=== PATIENT | female | born 1935 | race Caucasian/White ===

== ENCOUNTER 2018-02-13 11:30 | Emergency (ER) | payer OTHER ==
[~2018-02-13] VITALS: Ht 157.5 cm; Wt 49.9 kg
[2018-02-13 11:36] VITALS: Ht 157.5 cm; Wt 49.9 kg
[2018-02-13 12:50] LABS: BASOPHIL % 0.2 % (0-2); PLATELET COUNT 253 x10^3mcL (130-400)
[2018-02-13 12:56] LABS: RED CELL DISTRIBUTION WIDTH 14.8 % (11.5-14.5)
[2018-02-13 12:57] LABS: CALCIUM 9.3 mg/dL (8.5-10.1); CARBON DIOXIDE 29.6 mmol/L (21-32); CHLORIDE SERUM 110 mmol/L (98-107); GLUCOSE SERUM 311 mg/dL (74-106); POTASSIUM SERUM 3.7 mmol/L (3.5-5.1); SODIUM SERUM 148 mmol/L (136-145)
[2018-02-13 13:01] LABS: ALBUMIN 4.2 g/dL (3.4-5.0); ALKALINE PHOSPHATASE 78 U/L (46-116); ALT/SGPT 25 U/L (14-59); AST/SGOT 15 U/L (15-37); BILIRUBIN TOTAL 0.38 mg/dL (0.20-1.00); CHOLESTEROL 203 mg/dL (<200); HDL CHOLESTEROL 112 mg/dL (40-60); MAGNESIUM 2.3 mg/dL (1.8-2.4); TOTAL PROTEIN, SERUM 9.1 g/dL (6.4-8.2)
[2018-02-13 13:33] LABS: UA SPECIFIC GRAVITY 1.025 (1.005-1.035); microscopic required? YES; urine erythrocyte 1+ (NEGATIVE)
[2018-02-13 16:09] VITALS: BP 188/102
== END 2018-02-13 16:28 | disposition home or self-care (01) ==
LOC: ED 11:30
PROVIDERS: Emergency Medicine
DX: E11.65 Type 2 diabetes mellitus with hyperglycemia (principal); I10 Essential (primary) hypertension; R31.9 Hematuria, unspecified
CPT/HCPCS: 82962; J0360; Q0092

== ENCOUNTER 2018-02-14 10:11 | Emergency (ER) | payer OTHER ==
[~2018-02-14] VITALS: Ht 152.4 cm; Wt 51.3 kg
[2018-02-14 10:53] VITALS: BP 149/72
== END 2018-02-14 10:53 | disposition home or self-care (01) ==
LOC: ED 10:11
DX: I10 Essential (primary) hypertension (principal); G47.00 Insomnia, unspecified; E11.9 Type 2 diabetes mellitus without complications

== ENCOUNTER 2019-05-05 10:56 | Emergency (ER) | payer OTHER ==
[~2019-05-05] VITALS: Ht 152.4 cm; Wt 55.8 kg
[2019-05-05 11:21] VITALS: Ht 152.4 cm; Wt 55.8 kg
[2019-05-05 12:10] LABS: BASOPHIL % 0.3 % (0-2); PLATELET COUNT 241 x10^3mcL (130-400); RED CELL DISTRIBUTION WIDTH 15.6 % (11.5-14.5)
[2019-05-05 12:31] LABS: CALCIUM 8.9 mg/dL (8.5-10.1); CARBON DIOXIDE 29.6 mmol/L (21-32); CHLORIDE SERUM 98 mmol/L (98-107); GLUCOSE SERUM 177 mg/dL (74-106); POTASSIUM SERUM 3.9 mmol/L (3.5-5.1); SODIUM SERUM 134 mmol/L (136-145)
[2019-05-05 12:38] LABS: ALBUMIN 3.5 g/dL (3.4-5.0); ALKALINE PHOSPHATASE 40 U/L (46-116); ALT/SGPT 22 U/L (14-59); AST/SGOT 22 U/L (15-37); BILIRUBIN TOTAL 0.4 mg/dL (0.20-1.00); TOTAL PROTEIN, SERUM 7.6 g/dL (6.4-8.2)
[2019-05-05 13:37] VITALS: BP 173/92
== END 2019-05-05 13:37 | disposition home or self-care (01) ==
LOC: ED 10:56
PROVIDERS: Emergency Medicine
DX: I10 Essential (primary) hypertension (principal); E11.9 Type 2 diabetes mellitus without complications
CPT/HCPCS: J3490